=== PATIENT | female | born 1980 | race Caucasian/White ===

== ENCOUNTER 2019-08-20 13:11 | Emergency (ER) | payer OTHER ==
[~2019-08-20] VITALS: Ht 175.3 cm; Wt 77.1 kg
[2019-08-20] MEDS ORDERED: BIRTH CONTROL (13:27)
[2019-08-20] MEDS ORDERED: BACTRIM DS TAB1 EACH PO (14:03)
[2019-08-20] MEDS ORDERED: DIFLUCAN150 M1 PO (14:03)
[2019-08-20 14:17] VITALS: BP 132/67
== END 2019-08-20 14:21 | disposition home or self-care (01) ==
LOC: M.ERS 13:11
DX: S61.313A Laceration without foreign body of left middle finger with damage to nail, initial encounter (principal); Z88.0 Allergy status to penicillin; Z88.5 Allergy status to narcotic agent; W26.8XXA Contact with other sharp object(s), not elsewhere classified, initial encounter; Y93.89 Activity, other specified; Y92.89 Other specified places as the place of occurrence of the external cause; Y99.8 Other external cause status